=== PATIENT | male | born 1985 | race Caucasian/White ===

== ENCOUNTER 2019-11-26 10:45 | Emergency (ER) | payer OTHER ==
--- NOTE | 2019-11-26 10:55 | EDM.PDOC ---
ED HPI GENERAL MEDICAL PROBLEM - General Chief Complaint: Respiratory Problem Stated Complaint: sore throat cough Time Seen by Provider: 11/26/19 10:45 Source of Information: Reports: Patient, Old Records ([facility] chart/EMR) History Limitations: Reports: No Limitations - History of Present Illness INITIAL COMMENTS - FREE TEXT/NARRATIVE: Patient drove himself to the emergency room via private automobile for evaluation of fever and chills associated with a severe 10/10 sore throat with symptoms starting on 11/23 at about 21:00 hours. He has taken some OTC cold preparations for his symptoms with no known exposure to infection, and the patient practicing isolation guidelines as per recent COVID-19 pandemic. He has not taken any recent antipyretic medication or measured his temperature. 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 He was referred to the emergency room by the outpatient COVID-19 screening team, which is currently active in [place], with COVID-19 specimen collected earlier this morning. No recent history of abdominal pain, heartburn, nausea, diarrhea, melena, gross hematochezia, or any food intolerance, including fatty foods, etc.. The patient also denies any recent cough, wheezing, dyspnea, etc.. Onset: Gradual Onset Date: 11/24/19 Onset Time: 21:00 Duration: Constant, Getting Worse Location: Reports: Other (Sore throat as above). Denies: Head, Face, Neck, Chest, Abdomen, Back, Upper Extremity, Left, Upper Extremity, Right, Radiates to Quality: Reports: Same as Previous Episode, Throbbing Severity: Mild Worsens with: Reports: None Context: Reports: Other (As above). Denies: Sick Contact, Trauma Associated Symptoms: Reports: Fever/Chills. 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 [No Known Home Meds] 11/26/19 [History] Past Medical History HEENT History: Reports: Impaired Vision, Otitis Media, Other (See Below). Denies: Allergic Rhinitis Other HEENT History: Patient wears glasses. Recurrent otitis media as a child with no surgery required. Cardiovascular History: Reports: None. Denies: Arrhythmia, Heart Murmur Respiratory History: Reports: None. Denies: Asthma Endocrine/Metabolic History: Reports: Osteopenia Social & Family History - Tobacco Use Smoking Status *Q: Current Every Day Smoker Tobacco Use Within Last Twelve Months: Snuff/Dip Years of Tobacco use: 14 Packs/Tins Daily: 0.3 Packs/Tins Daily Comment: Started chewing tobacco use at age 20 with average use of 2 cans per week. 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 ED EXAM, GENERAL - Physical Exam Exam: See Below Exam Limited By: No Limitations General Appearance: Alert, WD/WN, No Apparent Distress Eye Exam: Left Eye: EOMI, Normal Inspection (No Nystagmus. Patient wearing glasses.), Bilateral Eye: PERRL Ears: Normal External Exam, Normal Canal, Hearing Grossly Normal, Normal TMs Nose: Normal Mucosa, No Blood, Clear Rhinorrhea Throat/Mouth: Normal Lips, Normal Teeth, Normal Gums, Normal Voice, No Airway Compromise. No: Normal Oropharynx (+4 erythema on the tonsils and posterior pharynx with large amounts of pinpoint white exudates with no peritonsillar abscess, uvular edema, etc.), Dysphagia, Perioral Cyanosis Head: Atraumatic, Normocephalic. No: Facial Swelling, Facial Tenderness, Sinus Tenderness Neck: Normal Inspection, Supple, Non-Tender, Full Range of Motion. No: Lymphadenopathy (L), Lymphadenopathy (R), Thyromegaly Respiratory/Chest: No Respiratory Distress, Lungs Clear, Normal Breath Sounds, No Accessory Muscle Use, Chest Non-Tender. No: Pleural Rub, Retractions Cardiovascular: Normal Peripheral Pulses, Regular Rate, Rhythm, No Edema, No Gallop, No JVD, No Murmur, No Rub. No: Gallop/S3, Gallop/S4, Friction Rub Peripheral Pulses: 2+: Radial (R), Femoral (L) GI/Abdominal: Normal Bowel Sounds, Soft, Non-Tender, No Organomegaly, No Distention, No Abnormal Bruit, No Mass, Other (Obese). No: Guarding (Male) Exam: Deferred Rectal (Males) Exam: Deferred Back Exam: Normal Inspection, Full Range of Motion. No: CVA Tenderness (L), CVA Tenderness (R), Muscle Spasm Extremities: Normal Inspection, Normal Range of Motion, Non-Tender, No Pedal Edema, Normal Capillary Refill. No: Raegan's Sign Neurological: Alert, Oriented, CN II-XII Intact, Normal Cognition, Normal Gait, Normal Reflexes, No Motor/Sensory Deficits Skin Exam: Warm, Dry, Intact, Normal Color, No Rash. No: Diaphoretic, Ecchymosis, Petechiae, Wound/Incision Lymphatic: No Adenopathy Course - Vital Signs Last Recorded V/S: Last Vital Signs Temp 39.3 C H 11/26/19 11:16 Pulse 104 H 11/26/19 10:58 Resp 18 11/26/19 10:58 BP 145/85 H 11/26/19 10:58 Pulse Ox 95 11/26/19 10:58 Vital Signs - 24 hr 11/26/19 11/26/19 10:58 11:16 Temperature 39.3 C H Temperature [ 39.3 C H Oral] Pulse, 104 H Peripheral [ Right Pulse Oximetry] Respiratory 18 Rate Blood Pressure 145/85 H [Left Lower Arm ] O2 Sat by Pulse 95 Oximetry - Orders/Labs/Meds Orders: Active Orders 24 hr Category Date Time Status Communication Order [RC] ROUTINE Care 11/26/19 12:19 Active Peripheral IV Care [RC] . DIRECTED Care 11/26/19 12:05 Active CULTURE BLOOD [BC] Stat Lab 11/26/19 11:10 Received CULTURE BLOOD [] Stat Lab 11/26/19 11:10 Received CULTURE STREP A CONFIRMATION [] Stat Lab 11/26/19 11:00 Results STREP SCRN A RAPID W CULT CONF [] Stat Lab 11/26/19 11:00 Results Sodium Chloride 0.9% [Saline Flush] Med 05/03/20 12:04 Active 10 ml FLUSH ASDIRECTED PRN Blood Culture x2 Reflex Set [OM.PC] Urgent Oth 11/26/19 11:09 Ordered Obtain Past Medical Record [OM.PC] Routine Ot 11/26/19 10:55 Active Peripheral IV Insertion Adult [OM.PC] Routine Ot 11/26/19 12:04 Ordered Medication Orders Sodium Chloride (Saline Flush) 10 ml FLUSH ASDIRECTED PRN PRN Reason: Keep Vein Open Labs: Laboratory Tests 11/26/19 11/26/19 11/26/19 Range/Units 11:10 11:10 11:10 WBC 20.9 H (4.0-10.2) K/uL RBC 5.58 H (4.33-5.41) M/uL Hgb 15.4 (13.1-16.8) g/dL Hct 45.0 (39.0-49.0) % MCV 80.6 L (84.0-98.0) fL MCH 27.6 L (28.2-33.3) pg MCHC 34.2 (31.7-36.0) g/dL RDW 13.1 (11.2-14.1) % Plt Count 184 (150-350) K/uL Neut % (Auto) 84.1 H (45.0-80.0) % Lymph % (Auto) 6.0 L (10.0-50.0) % [place] % (Auto) 9.7 (2.0-14.0) % Eos % (Auto) 0.0 (0.0-5.0) % Baso % (Auto) 0.2 (0.0-2.0) % Neut # (Auto) 17.53 H (1.40-7.00) K/uL Lymph # (Auto) 1.25 (0.50-3.50) K/uL [place] # (Auto) 2.02 H (0.00-1.00) K/uL Eos # (Auto) 0.01 (0.00-0.50) K/uL Baso # (Auto) 0.04 (0.00-0.20) K/uL Sodium 135 L (136-145) mmol/L Potassium 3.5 (3.5-5.1) mmol/L Chloride 101 (98-107) mmol/L Carbon Dioxide 22.5 (21.0-32.0) mmol/L BUN 9 (7-18) mg/dL Creatinine 0.84 (0.51-1.17) mg/dL Est Cr Clr Drug Dosing 130.36 mL/min Estimated GFR (MDRD) > 60 mL/min Glucose 132 H (74-106) mg/dL Lactic Acid 1.3 (0.4-2.0) mmol/L Calcium 8.8 (8.5-10.1) mg/dL Total Bilirubin 0.6 (0.2-1.0) mg/dL AST 19 (15-37) U/L ALT 50 (12-78) U/L Alkaline Phosphatase 83 (46-116) IU/L Total Protein 8.2 (6.4-8.2) g/dL Albumin 3.6 (3.4-5.0) g/dL Monoscreen (NEGATIVE) 11/26/19 Range/Units 11:10 WBC (4.0-10.2) K/uL RBC (4.33-5.41) M/uL Hgb (13.1-16.8) g/dL Hct (39.0-49.0) % MCV (84.0-98.0) fL MCH (28.2-33.3) pg MCHC (31.7-36.0) g/dL RDW (11.2-14.1) % Plt Count (150-350) K/uL Neut % (Auto) (45.0-80.0) % Lymph % (Auto) (10.0-50.0) % [place] % (Auto) (2.0-14.0) % Eos % (Auto) (0.0-5.0) % Baso % (Auto) (0.0-2.0) % Neut # (Auto) (1.40-7.00) K/uL Lymph # (Auto) (0.50-3.50) K/uL [place] # (Auto) (0.00-1.00) K/uL Eos # (Auto) (0.00-0.50) K/uL Baso # (Auto) (0.00-0.20) K/uL Sodium (136-145) mmol/L Potassium (3.5-5.1) mmol/L Chloride (98-107) mmol/L Carbon Dioxide (21.0-32.0) mmol/L BUN (7-18) mg/dL Creatinine (0.51-1.17) mg/dL Est Cr Clr Drug Dosing mL/min Estimated GFR (MDRD) mL/min Glucose (74-106) mg/dL Lactic Acid (0.4-2.0) mmol/L Calcium (8.5-10.1) mg/dL Total Bilirubin (0.2-1.0) mg/dL AST (15-37) U/L ALT (12-78) U/L Alkaline Phosphatase (46-116) IU/L Total Protein (6.4-8.2) g/dL Albumin (3.4-5.0) g/dL Monoscreen Negative (NEGATIVE) Microbiology 11/26/19 11:00 Group A Streptococcus Rapid Screen - Final Throat NEGATIVE STREP A SCREEN REFERENCE RANGE: NEGATIVE Blood cultures 2 were collected. Meds: Medications Generic Name Dose Route Start Last Admin Trade Name Freq PRN Reason Stop Dose Admin Sodium Chloride 10 ml 11/26/19 12:04 Saline Flush FLUSH ASDIRECTED PRN Keep Vein Open Discontinued Medications Generic Name Dose Route Start Last Admin Trade Name Freq PRN Reason Stop Dose Admin Acetaminophen 1,000 mg 11/26/19 11:09 11/26/19 11:22 Tylenol PO 11/26/19 11:10 Not Given NOW ONE Acetaminophen Confirm 11/26/19 11:16 11/26/19 11:22 Tylenol Extra Strength Administered 11/26/19 11:17 Not Given Dose 1,000 mg .ROUTE .STK-MED ONE Acetaminophen 1,000 mg 11/26/19 11:16 11/26/19 11:16 Tylenol Extra Strength PO 11/26/19 11:17 1,000 mg ONETIME ONE Administration Ceftriaxone Sodium 2 gm 11/26/19 12:05 Rocephin IVPUSH 11/26/19 12:06 ONETIME ONE - Radiology Interpretation Free Text/Narrative:: None Departure - Departure Time of Disposition: 13:15 Disposition: Home, Self-Care 01 Condition: Fair Clinical Impression: Tonsillitis, Tobacco abuse counseling - Discharge Information *PRESCRIPTION DRUG MONITORING PROGRAM REVIEWED*: Not Applicable *COPY OF PRESCRIPTION DRUG MONITORING REPORT IN PATIENT YOVANY: Not Applicable Instructions: Tonsillitis, [id number], Ceftriaxone injection, Smokeless Tobacco Information, Adult Referrals: PCP,None [Primary Care Provider] - Forms: ED Department Discharge, ED Return to Work/School Form Additional Instructions: 1. Followup with your regular provider in the a.m. on 11/26 as directed for reevaluation and recommended CBC, comprehensive metabolic panel, and lactic acid level. Consider additional chest x-rays depending on his symptoms at follow -up. Bring these discharge instructions with you to that visit. 2. Tylenol 650 mg by mouth every 4 hours and/or OTC ibuprofen 2-3 tabs by mouth every 6 hours with food as directed./needed. You may stagger these medications for 48-72 hours only, which essentially means that you are receiving a pain medication about every 2 hours. Next dose of Tylenol in 4 hours as needed secondary to medications given in the emergency room. 3. Maintain strict isolation/quarantine guidelines until results of your COVID- 19 tests have been obtained and until you are released by your regular provider 4. Work excuse- See Form 5. Listerine gargles four times per day, after meals and at bedtime, with additional Chloroseptic lozenges or spray as needed for 10 days and/or until symptoms resolve. 6. Stop all tobacco use SHARONA as directed/per provided information and consider contacting Quit [employer]ne, etc.. 7. Immediately after this visit verify that your cellular telephone's voicemail has been activated and is empty. Also verify that your home telephone 's answering machine is operating properly and has space to receive messages. Note that it is sometimes necessary for us to be able to contact you at a later date to discuss your medical care. 8. Please remember that we are ALWAYS here for you and want to answer any questions you may have. Feel free to call the hospital any time and we call you back SHARONA. Sepsis Event Note - Focused Exam Vital Signs: Vital Signs Temp Temp Pulse Resp BP Pulse Ox 11/26/19 11:16 39.3 C H 11/26/19 10:58 39.3 C H 104 H 18 145/85 H 95 Date Exam was Performed: 11/26/19 Time Exam was Performed: 13:16 - Problem List & Annotations (1) Tonsillitis SNOMED Code(s): 95599395 Code(s): J03.90 - ACUTE TONSILLITIS, UNSPECIFIED Status: Acute Priority: High Current Visit: No Onset Date: 11/24/19 Annotation/Comment:: Note significant fever and leukocytosis with normal lactic acid level and no direct clinical evidence of sepsis. Inpatient care was strongly recommended, however the patient did refuse this recommendation. Close follow-up by regular provider as per discharge instructions. High-dose IV Rocephin given in the emergency room. He was discharged with saline lock in place with further hospitalization, outpatient IV Rocephin therapy, and/or change to oral antibiotic therapy depending on his follow-up blood work, clinical course, etc.. Work excuse provided. Patient will remain in quarantine with hygiene, etc. precautions given as per discharge instructions. (2) Tobacco abuse counseling SNOMED Code(s): 026023005, 337581485, 032150054 Code(s): Z71.6 - TOBACCO ABUSE COUNSELING Status: Chronic Priority: Medium Current Visit: No Annotation/Comment:: The patient was extensively counseled concerning the risk of chewing tobacco use and use of Nicorette gum, etc. - Problem List Review Problem List Initiated/Reviewed/Updated: Yes - My Orders Last 24 Hours: My Active Orders 11/26/19 10:55 Obtain Past Medical Record [OM.] Routine 11/26/19 11:00 CULTURE STREP A CONFIRMATION [RM] Stat STREP SCRN A RAPID W CULT CONF [RM] Stat 11/26/19 11:09 Blood Culture x2 Reflex Set [OM.] Urgent 11/26/19 11:10 CULTURE BLOOD [BC] Stat CULTURE BLOOD [BC] Stat 11/26/19 12:04 Sodium Chloride 0.9% [Saline Flush] 10 ml FLUSH ASDIRECTED PRN Peripheral IV Insertion Adult [OM.] Routine 11/26/19 12:05 Peripheral IV Care [RC] . DIRECTED 11/26/19 12:19 Communication Order [RC] ROUTINE - Assessment/Plan Last 24 Hours: My Active Orders 11/26/19 10:55 Obtain Past Medical Record [OM.] Routine 11/26/19 11:00 CULTURE STREP A CONFIRMATION [RM] Stat STREP SCRN A RAPID W CULT CONF [RM] Stat 11/26/19 11:09 Blood Culture x2 Reflex Set [OM.] Urgent 11/26/19 11:10 CULTURE BLOOD [BC] Stat CULTURE BLOOD [BC] Stat 11/26/19 12:04 Sodium Chloride 0.9% [Saline Flush] 10 ml FLUSH ASDIRECTED PRN Peripheral IV Insertion Adult [OM.PC] Routine 11/26/19 12:05 Peripheral IV Care [RC] . DIRECTED 11/26/19 12:19 Communication Order [RC] ROUTINE Assessment:: As above Plan: As above. Extensive precautions were given to the patient, who is in agreement with the treatment plan. See Patient Instructions for further treatment and plan.
[2019-11-26] MEDS ORDERED: Acetaminophen 325 MG Tab PO ONE (11:09)
[2019-11-26] MEDS ORDERED: Acetaminophen 500 MG Tab PO ONE (11:16)
[2019-11-26] MEDS ORDERED: Acetaminophen 500 MG Tab ONE (11:16)
[2019-11-26 11:53] LABS: CHLORIDE,CL 101 mmol/L (98-107); SODIUM,NA 135 mmol/L (136-145)
[2019-11-26] MEDS ORDERED: Sodium Chloride 0.9% 10 ML Syringe FLUSH PRN (12:04)
[2019-11-26] MEDS ORDERED: cefTRIAXone 2 GM Vial IVPUSH ONE (12:05)
== END 2019-11-26 13:20 | disposition home or self-care (01) ==
LOC: LL.ED 10:45
DX: J03.90 Acute tonsillitis, unspecified (principal); F17.210 Nicotine dependence, cigarettes, uncomplicated; Z71.6 Tobacco abuse counseling
CPT/HCPCS: 36415; 80053; 83605; 85025; 86308; 87040; 87081; 87430; 96374; 99283-25; A9270-GY; J0696